=== PATIENT | female | born 1985 | race Caucasian/White ===

== ENCOUNTER 2017-02-20 09:51 | Emergency (ER) | payer OTHER ==
[~2017-02-20 09:51] MED LIST: AUGMENTIN 875875 MG PO; CIPROFLOXACIN500 MG PO; CLARITIN10 MG PO; NAPROSYN500 MG PO; PENICILLIN-VK500 MG PO; PHENERGAN25 M1 PO; PROCTOCREAM-HC30 GM PO; ROBITUSSIN-AC 160 ML PO; SEPTRA DS 800 M1 TAB PO; VIBRAMYCIN100 MG PO; VICODIN 5/500 505 MG PO
[2017-02-20] MEDS ORDERED: NAPROSYN500 MG PO (09:58)
== END 2017-02-20 10:36 | disposition home or self-care (01) ==
LOC: ED 09:51
DX: M25.561 Pain in right knee (principal); R03.0 Elevated blood-pressure reading, without diagnosis of hypertension; F17.200 Nicotine dependence, unspecified, uncomplicated

== ENCOUNTER 2017-03-26 09:45 | Emergency (ER) | payer OTHER ==
[2017-03-26 10:33] LABS: BILIRUBIN 1+ (NEGATIVE); BLOOD 3+ (NEGATIVE); CLARITY CLOUDY (CLEAR); COLOR RED (YELLOW); GLUCOSE NEGATIVE (NEGATIVE); KETONE NEGATIVE (NEGATIVE); NITRITE POSITIVE (NEGATIVE); PH 7.5 (5.0-9.0); PROTEIN 2+ (NEGATIVE)
[2017-03-26 10:40] LABS: LEUKO ESTERASE 3+ (NEGATIVE); RBC TNTC rbc/hpf (0-2); WBC TNTC wbc/hpf (0-5)
[2017-03-26 10:41] LABS: URINE REFLEX COMMENT YES (NO)
[2017-03-26] MEDS ORDERED: MACROBID100 M1 PO (10:42)
[2017-03-26] MEDS ORDERED: ZOFRAN4 MG PO (10:42)
[2017-03-26] MEDS ORDERED: PYRIDIUM200 M1 PO (10:42)
== END 2017-03-26 11:41 | disposition home or self-care (01) ==
LOC: ED 09:45
PROVIDERS: Nurse Practitioner Family
DX: N39.0 Urinary tract infection, site not specified (principal); R31.9 Hematuria, unspecified; R03.0 Elevated blood-pressure reading, without diagnosis of hypertension; F17.200 Nicotine dependence, unspecified, uncomplicated

== ENCOUNTER 2017-06-15 14:05 | Emergency (ER) | payer OTHER ==
[~2017-06-15] VITALS: Ht 170.1 cm; Wt 89.8 kg
[~2017-06-15 14:05] MED LIST changes: +MACROBID100 M1 PO; +PYRIDIUM200 M1 PO; +ZOFRAN4 MG PO
[2017-06-15] MEDS ORDERED: MEDROL DOSEPAK4 MG PO (14:51)
[2017-06-15] MEDS ORDERED: CYCLOBENZAPRINE10 MG PO (14:51)
== END 2017-06-15 14:53 | disposition home or self-care (01) ==
LOC: ED 14:05
DX: M54.41 Lumbago with sciatica, right side (principal); M54.42 Lumbago with sciatica, left side; F17.200 Nicotine dependence, unspecified, uncomplicated

== ENCOUNTER 2017-11-12 12:01 | Emergency (ER) | payer OTHER ==
[~2017-11-12] VITALS: Wt 95.3 kg
[~2017-11-12 12:01] MED LIST changes: +CYCLOBENZAPRINE10 MG PO; +MEDROL DOSEPAK4 MG PO
[2017-11-12] MEDS ORDERED: CITALOPRAM HYDR40 MG PO (12:03)
[2017-11-12 12:22] LABS: BILIRUBIN NEGATIVE (NEGATIVE); BLOOD TRACE-INTACT (NEGATIVE); CLARITY SL CLOUDY (CLEAR); COLOR YELLOW (YELLOW); GLUCOSE NEGATIVE (NEGATIVE); KETONE NEGATIVE (NEGATIVE); LEUKO ESTERASE NEGATIVE (NEGATIVE); NITRITE NEGATIVE (NEGATIVE); UROBILINOGEN 0.2 E.U./dl (0.2-1.0)
[2017-11-12 12:33] LABS: BACTERIA 1+
[2017-11-12 12:38] LABS: BASO % 0.3 % (0.0-1.0); EOS # 0.1 10*3/uL (0.0-0.4); EOS % 1.3 % (1.0-4.0); HEMATOCRIT 40.3 % (37.0-47.0); HEMOGLOBIN 14.5 g/dl (12.0-16.0); LYMPH # 1.3 10*3/uL (1.3-4.4); LYMPH % 12.9 % (27.0-41.0); MEAN CELL VOLUME 89.4 fl (81.0-99.0); MEAN CORPUSCULAR HGB 32.2 pg (27.0-31.0); MEAN PLATELET VOLUME 10.7 fl (9.6-12.3); MONO # 0.7 10*3/uL (0.1-1.0); MONO % 7.4 % (3.0-9.0); NEUT # 7.7 10*3/uL (2.3-7.9); NEUT % 77.9 % (47.0-73.0); PLATELET COUNT AUTOMATED 215 10*3/uL (130-400); RED BLOOD COUNT 4.51 10*6/uL (4.10-5.10); RED CELL DISTRI WIDTH 11.3 % (0-14.5); WHITE BLOOD COUNT 9.9 10*3/uL (4.8-10.8)
[2017-11-12 13:14] LABS: ALBUMIN 4.1 gm/dl (3.1-4.5); ALKALINE PHOSPHATASE 54 U/L (45-117); BUN 13 mg/dl (7-24); CHLORIDE 102 mmol/L (98-107); CREATININE 0.79 mg/dL (0.55-1.02); LIPASE 153 U/L (73-393); POTASSIUM 4.1 mmol/L (3.5-5.1); SGOT/AST 41 IU/L (3-35); SGPT/ALT 61 U/L (12-78); SODIUM 136 mmol/L (136-145); TOTAL PROTEIN 8.1 gm/dL (6.4-8.2)
[2017-11-12 13:16] LABS: BETA-HCG, QUANT < 1.0 mIU/mL (1-3)
[2017-11-12] MEDS ORDERED: Motrin,Rufen800 MG PO (16:20)
== END 2017-11-12 16:45 | disposition home or self-care (01) ==
LOC: ED 12:01
PROVIDERS: Emergency Medicine
DX: R10.11 Right upper quadrant pain (principal); R10.84 Generalized abdominal pain; F17.200 Nicotine dependence, unspecified, uncomplicated; Z79.899 Other long term (current) drug therapy

== ENCOUNTER → 2022-06-02 | Outpatient (CLI) | payer OTHER ==
[~2022-06-02] MED LIST changes: +CITALOPRAM HYDR40 MG PO; +KEFLEX500 M1 PO; +Motrin,Rufen800 MG PO
[2022-06-02 12:30] LABS: BASO # 0.1 10*3/uL (0.0-0.1); BASO % 0.6 % (0.0-1.0); BILIRUBIN Negative (Negative); BLOOD Trace-Lysed (Negative); CLARITY Clear (Clear); COLOR Yellow (Yellow); EOS # 0.2 10*3/uL (0.0-0.4); EOS % 1.8 % (1.0-4.0); GLUCOSE Negative (Negative); HEMATOCRIT 40.6 % (37.0-47.0); KETONE Negative (Negative); LEUKO ESTERASE Trace (Negative); LYMPH # 2.7 10*3/uL (1.3-4.4); LYMPH % 29.3 % (27.0-41.0); MEAN CORPUSCULAR HGB 33.3 pg (27.0-31.0); MEAN CORPUSCULAR HGB CONC 34.7 g/dl (33.0-37.0); MONO # 0.9 10*3/uL (0.1-1.0); MONO % 9.9 % (3.0-9.0); NEUT # 5.4 10*3/uL (2.3-7.9); NITRITE Negative (Negative); PLATELET COUNT AUTOMATED 212 10*3/uL (130-400); RED BLOOD COUNT 4.23 10*6/uL (4.10-5.10); RETICULOCYTE % 1.87 % (0.50-2.50); SPECIFIC GRAVITY 1.015 (1.001-1.030); WHITE BLOOD COUNT 9.4 10*3/uL (4.8-10.8)
[2022-06-02 12:50] LABS: BUN 10 mg/dl (7-24); CHLORIDE 105 mmol/L (98-107); CHOLESTEROL 150 mg/dL (<200); CREATININE 0.83 mg/dL (0.55-1.02); GAMMA GLUTAMYL TRANSPEPTIDASE 20 U/L (5-55); IRON 88 ug/dL (50-170); POTASSIUM 3.6 mmol/L (3.5-5.1); SGOT/AST 12 IU/L (3-35); SGPT/ALT 16 U/L (12-78); SODIUM 140 mmol/L (136-145); TOTAL PROTEIN 7.8 gm/dL (6.4-8.2); TRIGLYCERIDES 273 mg/dl (<150)
[2022-06-02 12:52] LABS: BACTERIA 2+; EPITHELIAL CELLS 16-20; WBC 16-20 wbc/hpf (0-5)
[2022-06-02 12:53] LABS: RBC 0-2 rbc/hpf (0-2)
[2022-06-02 12:58] LABS: ALKALINE PHOSPHATASE 57 U/L (45-117); LDL CHOLESTEROL 58 mg/dL (9-159)
[2022-06-02 13:08] LABS: VITAMIN D, 25-HYDROXY 39.5 ng/mL (30-100)
[2022-06-02 13:09] LABS: FERRITIN 31.1 ng/mL (10.0-291.0)
== END | disposition home or self-care (01) ==
LOC: LAB 11:57
PROVIDERS: ATTEND Family Medicine
DX: R53.83 Other fatigue (principal); R79.89 Other specified abnormal findings of blood chemistry; E78.5 Hyperlipidemia, unspecified; E55.9 Vitamin D deficiency, unspecified

== ENCOUNTER 2022-07-05 15:45 | Emergency (ER) | payer OTHER ==
[~2022-07-05] VITALS: Ht 170.1 cm; Wt 81.6 kg
[2022-07-05] MEDS ORDERED: PREDNISONE50 MG PO (16:14)
== END 2022-07-05 16:58 | disposition home or self-care (01) ==
LOC: ED 15:45
DX: S46.911A Strain of unspecified muscle, fascia and tendon at shoulder and upper arm level, right arm, initial encounter (principal); Z90.89 Acquired absence of other organs; X50.9XXA Other and unspecified overexertion or strenuous movements or postures, initial encounter; Y93.89 Activity, other specified; Y92.89 Other specified places as the place of occurrence of the external cause; Y99.8 Other external cause status

== ENCOUNTER → 2022-07-07 | Outpatient (CLI) | payer OTHER ==
[~2022-07-07] MED LIST changes: +PREDNISONE50 MG PO
[2022-07-08 09:07] LABS: RHEUMATOID FACTOR <10.0 IU/mL (<14.0)
[2022-07-08 16:07] LABS: ANTI-DSDNA ANTIBODIES 3 IU/mL (0-9)
== END | disposition home or self-care (01) ==
LOC: LAB 11:51
PROVIDERS: ATTEND Family Medicine
DX: E78.5 Hyperlipidemia, unspecified (principal); R79.89 Other specified abnormal findings of blood chemistry; R53.83 Other fatigue

== ENCOUNTER → 2022-07-08 | Outpatient (CLI) | payer OTHER | END | disposition home or self-care (01) | LOC: ORTHO 07-07 18:31 | PROVIDERS: ATTEND Orthopaedic Surgery | DX: M25.511 Pain in right shoulder (principal) ==

== ENCOUNTER → 2022-09-01 | Outpatient (CLI) | payer OTHER | END | disposition home or self-care (01) | LOC: CARD 00:07 | PROVIDERS: ATTEND Internal Medicine Cardiovascular Disease | DX: R07.89 Other chest pain (principal); R00.1 Bradycardia, unspecified ==

== ENCOUNTER → 2022-12-15 | Outpatient (CLI) | payer OTHER | END | disposition home or self-care (01) | LOC: RAD 11:14 | PROVIDERS: ATTEND Family Medicine | DX: M25.561 Pain in right knee (principal) ==

== ENCOUNTER 2022-12-21 16:43 | Emergency (ER) | payer OTHER ==
[~2022-12-21] VITALS: Ht 170.1 cm; Wt 85.7 kg
[2022-12-21 17:29] LABS: BASO # 0.1 10*3/uL (0.0-0.1); BASO % 0.7 % (0.0-1.0); EOS # 0.2 10*3/uL (0.0-0.4); EOS % 2.2 % (1.0-4.0); HEMATOCRIT 42.1 % (37.0-47.0); LYMPH # 1.9 10*3/uL (1.3-4.4); LYMPH % 25.6 % (27.0-41.0); MEAN CELL VOLUME 95.2 fl (81.0-99.0); MEAN CORPUSCULAR HGB 32.8 pg (27.0-31.0); MEAN CORPUSCULAR HGB CONC 34.4 g/dl (33.0-37.0); MEAN PLATELET VOLUME 10.6 fl (9.6-12.3); MONO # 0.7 10*3/uL (0.1-1.0); MONO % 9.6 % (3.0-9.0); NEUT # 4.6 10*3/uL (2.3-7.9); NEUT % 61.8 % (47.0-73.0); PLATELET COUNT AUTOMATED 206 10*3/uL (130-400); RED BLOOD COUNT 4.42 10*6/uL (4.10-5.10); RED CELL DISTRI WIDTH 11.3 % (0-14.5); WHITE BLOOD COUNT 7.4 10*3/uL (4.8-10.8)
[2022-12-21 17:44] LABS: ALKALINE PHOSPHATASE 41 U/L (46-116); BUN 10 mg/dl (9-23); CHLORIDE 107 mmol/L (98-107); POTASSIUM 4.1 mmol/L (3.4-5.1); SGPT/ALT 16 U/L (10-49); TOTAL PROTEIN 7.5 gm/dL (6.0-8.0)
== END 2022-12-21 18:32 | disposition home or self-care (01) ==
LOC: ED 16:43
PROVIDERS: Physician Assistant
DX: R60.0 Localized edema (principal); Z98.890 Other specified postprocedural states

== ENCOUNTER → 2022-12-31 | Outpatient (CLI) | payer OTHER | END | disposition home or self-care (01) | LOC: MRI 00:16 | PROVIDERS: ATTEND Family Medicine | DX: M67.461 Ganglion, right knee (principal) ==

== ENCOUNTER 2023-07-27 19:51 | Emergency (ER) | payer OTHER ==
[~2023-07-27] VITALS: Ht 170.1 cm; Wt 81.6 kg
[2023-07-27] MEDS ORDERED: PENICILLIN VK500 MG PO (20:28)
== END 2023-07-27 20:35 | disposition home or self-care (01) ==
LOC: ED 19:51
DX: K04.7 Periapical abscess without sinus (principal); G43.909 Migraine, unspecified, not intractable, without status migrainosus; E78.00 Pure hypercholesterolemia, unspecified; Z98.890 Other specified postprocedural states

== ENCOUNTER 2023-12-03 11:58 | Emergency (ER) | payer OTHER ==
[~2023-12-03 11:58] MED LIST changes: +PENICILLIN VK500 MG PO
[2023-12-03] MEDS ORDERED: AMOX-CLAV 875-1 EACH PO (12:24)
[2023-12-03] MEDS ORDERED: MUCINEX COUGH PO (12:24)
== END 2023-12-03 12:32 | disposition home or self-care (01) ==
LOC: ED 11:58
DX: H66.91 Otitis media, unspecified, right ear (principal); Z98.890 Other specified postprocedural states; Z87.891 Personal history of nicotine dependence

== ENCOUNTER → 2024-01-24 | Outpatient (CLI) | payer OTHER ==
[~2024-01-24] MED LIST changes: +AMOX-CLAV 875-1 EACH PO; +MUCINEX COUGH PO
== END | disposition home or self-care (01) ==
LOC: RAD 08:54
PROVIDERS: ATTEND Family Medicine
DX: M25.511 Pain in right shoulder (principal)

== ENCOUNTER 2024-02-02 20:58 | Emergency (ER) | payer OTHER ==
[2024-02-02 21:25] LABS: BASO # 0.1 10*3/uL (0.0-0.1); BASO % 0.6 % (0.0-1.0); EOS # 0.2 10*3/uL (0.0-0.4); EOS % 1.8 % (1.0-4.0); HEMATOCRIT 43.2 % (37.0-47.0); LYMPH # 2.4 10*3/uL (1.3-4.4); LYMPH % 26.6 % (27.0-41.0); MEAN CELL VOLUME 94.3 fl (81.0-99.0); MEAN CORPUSCULAR HGB 32.8 pg (27.0-31.0); MEAN CORPUSCULAR HGB CONC 34.7 g/dl (33.0-37.0); MEAN PLATELET VOLUME 10.4 fl (9.6-12.3); MONO # 0.7 10*3/uL (0.1-1.0); MONO % 8.1 % (3.0-9.0); NEUT # 5.7 10*3/uL (2.3-7.9); NEUT % 62.7 % (47.0-73.0); PLATELET COUNT AUTOMATED 219 10*3/uL (130-400); RED BLOOD COUNT 4.58 10*6/uL (4.10-5.10); RED CELL DISTRI WIDTH 11.1 % (0-14.5)
[2024-02-02 21:46] LABS: BUN 10 mg/dl (9-23); CHLORIDE 102 mmol/L (98-107); POTASSIUM 3.9 mmol/L (3.4-5.1)
[2024-02-02] MEDS ORDERED: Ketorolac Tromethamine 30 MG/ML VIAL IM ONE (23:20)
[2024-02-02] MEDS ORDERED: MELOXICAM5 MG PO (23:23)
== END 2024-02-02 23:28 | disposition home or self-care (01) ==
LOC: ED 20:58
PROVIDERS: Nurse Practitioner
DX: M79.601 Pain in right arm (principal); M25.511 Pain in right shoulder; R20.0 Anesthesia of skin; Z98.890 Other specified postprocedural states

== ENCOUNTER 2024-07-29 09:37 | Emergency (ER) | payer OTHER ==
[~2024-07-29] VITALS: Ht 170.1 cm; Wt 84.4 kg
[~2024-07-29 09:37] MED LIST changes: +MELOXICAM5 MG PO
[2024-07-29] MEDS ORDERED: SODIUM CHLORIDE 0.9% 1,000 ML IV ONE (10:05)
[2024-07-29] MEDS ORDERED: DIAZEPAM 5 MG TAB PO ONE (10:05)
[2024-07-29] MEDS ORDERED: Ketorolac Tromethamine 15 MG/ML VIAL IV ONE (10:05)
[2024-07-29] MEDS ORDERED: Meclizine Hydrochloride 25 MG TAB PO ONE (10:05)
[2024-07-29 10:14] LABS: BASO % 0.4 % (0.0-1.0); EOS # 0.1 10*3/uL (0.0-0.4); HEMATOCRIT 40.7 % (37.0-47.0); LYMPH # 1.7 10*3/uL (1.3-4.4); LYMPH % 21.5 % (27.0-41.0); MEAN CELL VOLUME 94.2 fl (81.0-99.0); MEAN CORPUSCULAR HGB 33.1 pg (27.0-31.0); MEAN CORPUSCULAR HGB CONC 35.1 g/dl (33.0-37.0); MEAN PLATELET VOLUME 10.2 fl (9.6-12.3); MONO # 0.6 10*3/uL (0.1-1.0); MONO % 7.7 % (3.0-9.0); NEUT # 5.5 10*3/uL (2.3-7.9); NEUT % 69.1 % (47.0-73.0); PLATELET COUNT AUTOMATED 201 10*3/uL (130-400); RED BLOOD COUNT 4.32 10*6/uL (4.10-5.10); RED CELL DISTRI WIDTH 11.4 % (0-14.5)
[2024-07-29 10:33] LABS: BUN 8 mg/dl (9-23); CHLORIDE 105 mmol/L (98-107)
[2024-07-29] MEDS ORDERED: ANTIVERT25 M2 PO (11:14)
== END 2024-07-29 11:25 | disposition home or self-care (01) ==
LOC: ED 09:37
PROVIDERS: Emergency Medicine
DX: R42 Dizziness and giddiness (principal); G43.909 Migraine, unspecified, not intractable, without status migrainosus; Z98.890 Other specified postprocedural states

== ENCOUNTER 2024-08-06 09:13 | Emergency (ER) | payer OTHER ==
[~2024-08-06] VITALS: Ht 170.1 cm; Wt 81.6 kg
[~2024-08-06 09:13] MED LIST changes: +ANTIVERT25 M2 PO
[2024-08-06] MEDS ORDERED: CEPHALEXIN500 M1 PO (10:46)
[2024-08-06] MEDS ORDERED: MELOXICAM15 MG PO (10:46)
== END 2024-08-06 10:53 | disposition home or self-care (01) ==
LOC: ED 09:13
DX: S99.922A Unspecified injury of left foot, initial encounter (principal); E78.00 Pure hypercholesterolemia, unspecified; Z98.890 Other specified postprocedural states; W22.8XXA Striking against or struck by other objects, initial encounter; Y93.89 Activity, other specified; Y92.89 Other specified places as the place of occurrence of the external cause; Y99.8 Other external cause status

== ENCOUNTER → 2024-11-07 | Outpatient (CLI) | payer OTHER ==
[~2024-11-07] MED LIST changes: +CEPHALEXIN500 M1 PO; +MELOXICAM15 MG PO
[2024-11-07 14:17] LABS: BASO # 0.1 10*3/uL (0.0-0.1); BASO % 0.8 % (0.0-1.0); EOS # 0.2 10*3/uL (0.0-0.4); EOS % 3.2 % (1.0-4.0); HEMATOCRIT 40.8 % (37.0-47.0); MEAN CELL VOLUME 94.2 fl (81.0-99.0); MEAN CORPUSCULAR HGB 32.6 pg (27.0-31.0); MEAN CORPUSCULAR HGB CONC 34.6 g/dl (33.0-37.0); MEAN PLATELET VOLUME 10.4 fl (9.6-12.3); MONO # 0.6 10*3/uL (0.1-1.0); MONO % 9.2 % (3.0-9.0); NEUT # 3.3 10*3/uL (2.3-7.9); NEUT % 54.7 % (47.0-73.0); PLATELET COUNT AUTOMATED 236 10*3/uL (130-400); RED BLOOD COUNT 4.33 10*6/uL (4.10-5.10); RED CELL DISTRI WIDTH 11.5 % (0-14.5); RETICULOCYTE % 1.75 % (0.50-2.50)
[2024-11-07 14:22] LABS: BILIRUBIN Negative (Negative); BLOOD Negative (Negative); CLARITY Cloudy (Clear); COLOR Yellow (Yellow); GLUCOSE Negative (Negative); KETONE Negative (Negative); LEUKO ESTERASE 1+ (Negative); NITRITE Negative (Negative); PH 5.5 (4.5-8.0); UROBILINOGEN 0.2 E.U./dl (0.0-1.0)
[2024-11-07 14:41] LABS: BACTERIA 2+
[2024-11-07 14:46] LABS: ALKALINE PHOSPHATASE 47 U/L (46-116); BUN 16 mg/dl (9-23); CHLORIDE 105 mmol/L (98-107); CHOLESTEROL 210 mg/dL (<200); GAMMA GLUTAMYL TRANSPEPTIDASE 31 U/L (0-73); POTASSIUM 4.2 mmol/L (3.4-5.1); SGPT/ALT 41 U/L (5-49); T3 UPTAKE 24.6 % (22.4-36.7); THYROXINE (T4) TOTAL 6.8 ug/dl (4.5-10.9); TRIGLYCERIDES 495 mg/dl (<150); URIC ACID 6.7 mg/dL (3.1-7.8)
[2024-11-07 14:57] LABS: VITAMIN D, 25-HYDROXY 19.9 ng/mL (30-100)
[2024-11-08 13:06] LABS: ANTI-DSDNA ANTIBODIES 4 IU/mL (0-9)
== END | disposition home or self-care (01) ==
LOC: LAB 12:54
PROVIDERS: ATTEND Family Medicine
DX: M54.2 Cervicalgia (principal); R79.89 Other specified abnormal findings of blood chemistry; R53.83 Other fatigue; E78.5 Hyperlipidemia, unspecified; E55.9 Vitamin D deficiency, unspecified

== ENCOUNTER 2024-12-17 14:19 | Emergency (ER) | payer OTHER ==
[~2024-12-17] VITALS: Ht 170.1 cm; Wt 84.4 kg
== END 2024-12-17 16:34 | disposition home or self-care (01) ==
LOC: ED 14:19
DX: B34.9 Viral infection, unspecified (principal); Z20.822 Contact with and (suspected) exposure to COVID-19; Z98.890 Other specified postprocedural states

== ENCOUNTER 2025-07-04 22:15 | Emergency (ER) | payer OTHER ==
[~2025-07-04] VITALS: Ht 170.1 cm; Wt 85.7 kg
[2025-07-05] MEDS ORDERED: Acetaminophen/Hydrocodone 5 MG/325 MG TABLET PO ONE (01:05)
== END 2025-07-05 01:10 | disposition home or self-care (01) ==
LOC: ED 22:15
DX: M77.32 Calcaneal spur, left foot (principal); G43.909 Migraine, unspecified, not intractable, without status migrainosus

== ENCOUNTER 2025-08-27 12:09 | Emergency (ER) | payer OTHER ==
[~2025-08-27] VITALS: Ht 170.1 cm; Wt 89.4 kg
[2025-08-27 12:49] LABS: BASO # 0.0 10*3/uL (0.0-0.1); BASO % 0.3 % (0.0-1.0); EOS # 0.1 10*3/uL (0.0-0.4); EOS % 2.0 % (1.0-4.0); MEAN CELL VOLUME 94.2 fl (81.0-99.0); MEAN CORPUSCULAR HGB 32.7 pg (27.0-31.0); MEAN PLATELET VOLUME 10.0 fl (9.6-12.3); MONO # 0.6 10*3/uL (0.1-1.0); MONO % 9.6 % (3.0-9.0); NEUT # 4.3 10*3/uL (2.3-7.9); NEUT % 66.7 % (47.0-73.0); NUCLEATED RED BLOOD CELL 0.0 % (0.0-0.0); NUCLEATED RED BLOOD CELL 0.0 10*3/uL (0.0-0.0); PLATELET COUNT AUTOMATED 187 10*3/uL (130-400); RED CELL DISTRI WIDTH 11.2 % (0-14.5)
[2025-08-27 12:52] LABS: BILIRUBIN Negative (Negative); BLOOD Negative (Negative); CLARITY Clear (Clear); COLOR Dark Yellow (Yellow); KETONE Trace (Negative); LEUKO ESTERASE Negative (Negative); NITRITE Negative (Negative); PH 5.5 (4.5-8.0); SPECIFIC GRAVITY >= 1.030 (1.001-1.030); UROBILINOGEN 1.0 E.U./dl (0.0-1.0)
[2025-08-27 13:06] LABS: BACTERIA 2+; CALCIUM OXALATE CRYSTALS 3+; HYALINE CAST 0-2; MUCOUS 3+; RBC 0-2 rbc/hpf (0-2)
[2025-08-27 13:11] LABS: BUN 10 mg/dl (9-23); SGPT/ALT 111 U/L (5-49)
[2025-08-27] MEDS ORDERED: MACROBID100 M1 PO (13:52)
[2025-08-27] MEDS ORDERED: PRILOSEC20 M1 PO (13:52)
== END 2025-08-27 14:04 | disposition home or self-care (01) ==
LOC: ED 12:09
PROVIDERS: Nurse Practitioner Family
DX: K21.9 Gastro-esophageal reflux disease without esophagitis (principal); R14.0 Abdominal distension (gaseous); N30.00 Acute cystitis without hematuria; R14.1 Gas pain